=== PATIENT | male | born 1975 | race Caucasian/White ===

== ENCOUNTER 2018-08-11 08:27 | Day surgery (SDC) | payer OTHER ==
[2018-08-09 11:56] VITALS: BMI 36.4
[2018-08-11] MEDS ORDERED: oxyCODONE HCL 10 MG SUSTAINED ACTING TABLET PO ONE (08:34)
--- NOTE | 2018-08-11 11:11 | HP ---
History & Physical Update - History History: No Change - Physical Physical: No Change - Assessment Assessment: No Change - Plan Plan: No Change (H&P in chart from 08/08/2018)
[2018-08-11] MEDS ORDERED: BUPIVACAINE HCL/PF (5 MG/ML) 30 ML VIAL IJ ONE (11:15)
[2018-08-11] MEDS ORDERED: MIDAZOLAM HCL 2 MG/2 ML SINGLE DOSE VIAL ONE (11:15)
[2018-08-11] MEDS ORDERED: HYDROmorphone HCL/PF 1 MG/ML AMP ONE (11:43)
[2018-08-11] MEDS ORDERED: PROPOFOL 20 ML ONE ×8 (11:43→13:42)
[2018-08-11] MEDS ORDERED: THROMBIN (BOVINE) 5,000 UNIT VIAL TP ONE ×2 (11:50→12:28)
[2018-08-11] MEDS ORDERED: LIDOCAINE 1%/EPI 1:100000 (20 ML MULTI DOSE VIAL) ONE (11:51)
[2018-08-11] MEDS ORDERED: DEXAMETHASONE SOD PHOSPHATE 4 MG/1 ML VIAL ONE (11:52)
[2018-08-11] MEDS ORDERED: ONDANSETRON 4 MG/2 ML VIAL ONE ×2 (11:52→15:13)
[2018-08-11] MEDS ORDERED: LIDOCAINE HCL/PF 2% SDV 5ML VIAL ONE (11:52)
[2018-08-11] MEDS ORDERED: ceFAZolin SODIUM 1 GM VIAL ONE (12:28)
[2018-08-11] MEDS ORDERED: LIDOCAINE 1%/EPI 1:100000 (50 ML MULTI DOSE VIAL) INF ONE (12:28)
[2018-08-11] MEDS ORDERED: oxyCODONE HCL 5 MG TABLET PO PRN ×2 (14:16)
[2018-08-11] MEDS ORDERED: ONDANSETRON 4 MG/2 ML VIAL IVPUSH PRN (14:16)
--- NOTE | 2018-08-11 14:25 | OP ---
Operative Note - Note: Operative Date: 08/11/18 Pre-Operative Diagnosis: cervical stenosis, upper extremity myelopathy Operation: anterior cervcial disectomy/fusion of C5-C6 and C6-C7 Surgeon: Ferny Forrest Industrial Health Engineer: Luisa Leary Anesthesiologist/FAST FOOD RESTAURANT MANAGER: Lissa Wilson Anesthesia: General Estimated Blood Loss (mls): 20 Fluid Volume Replaced (mls): 900 Operative Report Dictated: Yes
[2018-08-11] MEDS ORDERED: LACTATED RINGERS SOLUTION 1,000 ML IV SCH (14:30)
--- NOTE | 2018-08-11 14:34 | SURG ---
Surgery Design Analyst Note Design Analyst: Luisa Leary PA-C Date of Service: 08/11/18 Diagnosis: cervcial stenosis, upper extremity myelopathy Procedure: anterior cervical disectomy fusion of C5-C6 and C6-C7 I was present for the entirety of the operative procedure. For further detail, please refer to operative report. Visit type - Case Type Case Type: Scheduled - Emergency Emergency Visit: No - New patient This patient is new to me today: Yes Date on this admission: 08/11/18
--- NOTE | 2018-08-11 15:42 | OP ---
DATE OF OPERATION: 08/11/2018 PREOPERATIVE DIAGNOSES: 1. Cervical stenosis. 2. Cervical myelopathy. POSTOPERATIVE DIAGNOSES: 1. Cervical stenosis. 2. Cervical myelopathy. PROCEDURE PERFORMED: 1. Anterior cervical discectomy infusion C5-6. 2. Anterior cervical discectomy infusion C6-7. 3. Placement of instrumentation, C5-C7. SURGEON: Ferny Forrest MD AIR TRAFFIC SUPERVISOR: SANTA Siddiqi. ESTIMATED BLOOD LOSS: 50 mL. INTRAVENOUS FLUIDS: Per Anesthesia. ANESTHESIA: General/SCP block. COMPLICATIONS: None. DISPOSITION: The patient was brought to the PACU in stable condition. INDICATIONS FOR SURGERY: The patient is a 43-year-old gentleman who has been suffering from pain from his neck down his arm. X-rays and MRI were complicated and it was noted that he had cervical stenosis at C5-6 and C6-7 with myelopathy at that level. I discussed the diagnosis of cervical myopathy with the patient. I discussed the fact that he may have stepwise deterioration in function. The risks, benefits, and alternatives of the surgery were discussed with the patient and the patient consented to surgery. DESCRIPTION F PROCEDURE: The patient was brought to the operating room by the anesthesia staff. After appropriate patient identification was performed general anesthesia was given along with a SCP block. The patient was placed prone on the OR table without his arms tucked in at the side. A shoulder roll was placed underneath the shoulder to extend his neck to the point that he could tolerate in the preoperative holding area. The needle was placed into his neck to martín off the C5-6 level. X-rays were taken to confirm that this was correct. The needle was removed and 10 mL of lidocaine with epinephrine was injected into his neck at this time. His neck was prepped and draped in a sterile manner. At this point, a time-out was completed. A 2-incision was made on the left side of his neck. Dissection was carried down to the platysma and the platysma was cut in line with the skin incision. Next, the internal sternocleidomastoid and strap muscles were developed. Next, an internally rotated carotid sheath as well as trachea esophagus was developed. Peanuts were used to elevate of the prevertebral fascia. A needle was placed into the C5-C6 disc. X-rays were taken to confirm this. The needle was removed. The longus colli muscles were elevated off and retractor blades were placed in. Vicente pins were placed in the body of C5 and C7. A knife was used to incise the disc and distraction was applied. At this point, the microscope was brought in. A [place] was used to elevate the disc off the end plates. The discs at C5-6 and C6-7 were then removed. Using a series of sutures, Kerrison, and curettes, a discectomy was completed. End plates were decorticated at this time. A cage filled with bone graft was placed at C5-6 and C6-7. Distraction was let go. The screws were placed in the body at C5-6 and C6-7. The [place] pins were removed. AP and lateral x-rays confirmed the instrument remained in good position. Final tightening was performed. The platysma was closed with 2-0 Vicryl. The skin was closed with 3-0 Monocryl suture. Dermabond was applied. Steri-Strips were applied and sterile dressings were applied. Patient was placed in the OR bed, x-rayed in the OR and brought back to the PACU in stable condition. Fran SANDHU/[id number] MTDD
[2018-08-11 16:14] VITALS: TEMP 97.8
[2018-08-11] MEDS ORDERED: diazePAM 5 MG TABLET ONE (16:46)
[2018-08-11] MEDS ORDERED: diazePAM 5 MG TABLET PO SCH (17:00)
[2018-08-11] MEDS ORDERED: ACETAMINOPHEN 325 MG TABLET (FP) ONE (17:41)
[2018-08-11] MEDS ORDERED: CEFAZOLIN 1 GM/D5W 1 GM/50 ML BAG ONE (17:41)
[2018-08-11] MEDS ORDERED: CEFAZOLIN 1 GM/D5W 1 GM/50 ML BAG IVPB ONE (18:00)
[2018-08-11] MEDS ORDERED: ACETAMINOPHEN 325 MG TABLET (FP) PO SCH (18:00)
[2018-08-11 18:07] VITALS: BP 129/78; PULSE 94
[2018-08-12] MEDS ORDERED: PATIENT'S OWN MEDICATION (NON-FORMULARY) (Lansoprazole [Prevacid] 30 MG) PO SCH (10:00)
[2018-08-12] MEDS ORDERED: PANTOPRAZOLE 40 MG TABLET (FP) PO SCH (10:00)
--- NOTE | 2018-08-15 17:20 | PATH ---
Surgical Pathology Report Patient Name: FRANCISCO ROLON [facility]. Rec. #: [id number] /Age/Gender: 1975 (Age: 43) / M Account: [id number] Location: [facility] Taken: 08/11/2018 Received: 08/11/2018 Reported: 08/15/2018 Physicians: Ferny Forrest M.D. Specimen(s) Received C5-C6 DISC + C6-C7 DISC Clinical History Cervical stenosis Final Diagnosis DISC, C5-7, DISCECTOMY AND FUSION: BENIGN INTERVERTEBRAL DISC TISSUE. Electronically Signed Gay West M.D. Gross Description Received in formalin labeled "C5-C6 and C6-C7 discs," is a 5.5 x 4.0 x 0.5 cm aggregate of monge fragments of fibrocartilaginous tissue. A car sales representative portion is submitted in one cassette. DL/08/12/2018 saudi/08/12/2018
== END 2018-08-11 18:40 | disposition home or self-care (01) ==
LOC: FASU 08:27
PROVIDERS: ATTEND Orthopaedic Surgery Orthopaedic Surgery of the Spine
PROC: 0RG10A0 Fusion of Cervical Vertebral Joint with Interbody Fusion Device, Anterior Approach, Anterior Column, Open Approach (ICD-10-PCS; 2018-08-11)
PROC: 0RG10K0 Fusion of Cervical Vertebral Joint with Nonautologous Tissue Substitute, Anterior Approach, Anterior Column, Open Approach (ICD-10-PCS; 2018-08-11)
PROC: 0RB30ZZ Excision of Cervical Vertebral Disc, Open Approach (ICD-10-PCS; principal; 2018-08-11 12:29)
DX: M48.02 Spinal stenosis, cervical region (principal); M50.023 Cervical disc disorder at C6-C7 level with myelopathy
CPT/HCPCS: 22551; 22552; 22845; 22853; C1889; 72050-TC-FY; 88304-TC; 94760